=== PATIENT | male | born 1955 | race Caucasian/White ===

== ENCOUNTER → 2017-05-31 | Outpatient (CLI) | payer BC | END | disposition home or self-care (01) | LOC: LABWHC1 08:36 | PROVIDERS: ATTEND Psychiatry & Neurology Neurology | DX: M79.672 Pain in left foot (principal); Z79.899 Other long term (current) drug therapy | CPT/HCPCS: 36415; 83036 ==

== ENCOUNTER → 2018-02-27 | Outpatient (CLI) | payer BC ==
--- NOTE | 2018-02-27 10:50 | XR ---
EXAMINATION TYPE: XR Hip Complete RT DATE OF EXAM: 02/27/2018 COMPARISON: NONE HISTORY: Pain TECHNIQUE: 2 views submitted FINDINGS: There is no evidence of erosive change or acute fracture. Calcifications appear to be vascular. Mild concentric narrowing the joint space. No erosive changes. IMPRESSION: 1. Mild arthropathy.
== END | disposition home or self-care (01) ==
LOC: RADXRMAIN 09:52
PROVIDERS: ATTEND Psychiatry & Neurology Neurology
DX: M12.851 Other specific arthropathies, not elsewhere classified, right hip (principal); M25.551 Pain in right hip
CPT/HCPCS: 73502

== ENCOUNTER → 2018-05-13 | Outpatient (CLI) | payer BC | LOC: RADNMMAIN 09:00 | PROVIDERS: ATTEND Family Medicine | DX: Z53.9 Procedure and treatment not carried out, unspecified reason (principal) ==

== ENCOUNTER → 2018-06-02 | Outpatient (CLI) | payer BC ==
[~2018-06-02] MED LIST: REGADENOSON 0.4 MG/5 ML SYRINGE IV ONE
--- NOTE | 2018-06-02 11:29 | NM ---
EXAMINATION TYPE: NM stress lexiscan cardiolite DATE OF EXAM: 06/02/2018 COMPARISON: Prior chest x-ray dated 01/03/2016 HISTORY: Coronary artery disease and chest pain TECHNIQUE: After the intravenous administration of 10.37 mCi Tc 99m Sestamibi - Cardiolite resting S PECT images acquired 45 minutes post injection. The patient received 0.4mg Lexiscan, 25.2 mCi Tc 99m Sestamibi - Stress images obtained [address] injection FINDINGS: Review of stress and rest SPECT images demonstrates decreased reaffirms of uptake along the anterosep eric left ventricle on stress and rest images extending towards the apex. Some decreased uptake along the inferior wall is greater on rest images than on stress images. Gated analysis shows normal wall m otion with an estimated left ventricular ejection fraction of 56 %. IMPRESSION: No scintigraphic evidence for reversible ischemia. 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
--- NOTE | 2018-06-02 12:03 | ECHOF ---
Referral Reason:I25.10 CAD, R07.9 Chest pain MEASUREMENTS -------- HEIGHT: 157.5 cm WEIGHT: 106.6 kg BP: RVIDd: 3.4 cm (< 3.3) IVSd: 1.4 cm (0.6 - 1.1) LVIDd: 4.4 cm (3.9 - 5.3) LVPWd: 1.3 cm (0.6 - 1.1) IVSs: 1.8 cm LVIDs: 4.0 cm LVPWs: 1.3 cm LAESV Index (A-L): 26.04 ml/m Ao Diam: 4.0 cm (2.0 - 3.7) AV Cusp: 2.1 cm (1.5 - 2.6) LA Diam: 3.5 cm (2.7 - 3.8) MV EXCURSION: 17.701 mm (> 18.000) MV EF SLOPE: 69 mm/s (70 - 150) EPSS: 0.6 cm MV E Von: 0.43 m/s MV DecT: 289 ms MV A Von: 0.57 m/s MV E/A Ratio: 0.75 RAP: 5.00 mmHg RVSP: 10.41 mmHg FINDINGS -------- Sinus rhythm. This was a technically adequate study. The left ventricular size is normal. There is moderate concentric left ventricular hypertrophy. O verall left ventricular systolic function is mildly impaired with, an EF between 45 - 50 %. The right ventricle is normal in size. The left atrial size is normal. The right atrial size is normal. The aortic valve is trileaflet, and appears structurally normal. No aortic stenosis or regurgitation. Mild mitral regurgitation is present. Mild tricuspid regurgitation present. There is no evidence of pulmonary hypertension. The right v entricular systolic pressure, as measured by Doppler, is 10.41mmHg. There is no pulmonic regurgitation present. The aortic root size is normal. There is no pericardial effusion. CONCLUSIONS -------- 1. The left ventricular size is normal. 2. There is moderate concentric left ventricular hypertrophy. 3. Overall left ventricular systolic function is mildly impaired with, an EF between 45 - 50 %. 4. The right ventricle is normal in size. 5. The left atrial size is normal. 6. The right atrial size is normal. 7. The aortic valve is trileaflet, and appears structurally normal. No aortic stenosis or regurgitati on. 8. Mild mitral regurgitation is present. 9. Mild tricuspid regurgitation present. 10. There is no evidence of pulmonary hypertension. 11. The right ventricular systolic pressure, as measured by Doppler, is 10.41mmHg. 12. There is no pulmonic regurgitation present. 13. The aortic root size is normal. 14. There is no pericardial effusion. MEAL COOKER: Belle Carmona RDCS
--- NOTE | 2018-06-02 13:54 | EST ---
EXERCISE STRESS AGE: 63 SEX: M HT: 5'10" WT: 235 PROTOCOL: Lexiscan Cardiolite Stress Test HEART RATE REST: 61 BLOOD PRESSURE REST: 130/97 MAXIMUM HEART RATE ACHIEVED: 80 MAXIMUM BLOOD PRESSURE: 130/97 INDICATIONS: Coronary artery disease, chest pain. CLINICAL INFORMATION: STRESS DATA: Heart rate 61, pressure is 130/97 mmHg. Baseline EKG shows sinus mechanism with left bundle-branch block; 0.4 mg of Lexiscan was given over 15 seconds per protocol. Max heart rate was 80 beats per minute and maximum pressure was 130/97. Clinically, the patient has no symptoms and the EKG did not show any significant ST or T-wave abnormalities concerning for ischemia. CONCLUSION: 1. Nondiagnostic electrocardiogram stress testing response to Lexiscan. 2. Please follow up on the Cardiolite portion on a separate report from the Radiology Department. MMODL / IJN: [id number] /
== END | disposition home or self-care (01) ==
LOC: RADNMMAIN 07:56
PROVIDERS: ATTEND Family Medicine
DX: R07.9 Chest pain, unspecified (principal); I25.10 Atherosclerotic heart disease of native coronary artery without angina pectoris
CPT/HCPCS: 93017; 93306; 78452; A9500; J2785

== ENCOUNTER → 2020-05-19 | Outpatient (CLI) | payer MEDICARE ==
[2020-05-19 21:11] LABS: C Reactive Protein <0.4 mg/dL (0.0-0.8)
== END | disposition home or self-care (01) ==
LOC: LABWHC1 08:48
PROVIDERS: ATTEND Psychiatry & Neurology Neurology
DX: M10.9 Gout, unspecified (principal)
CPT/HCPCS: 36415; 84550; 85652; 86140

== ENCOUNTER → 2021-01-09 | Outpatient (CLI) | payer MEDICARE ==
[2021-01-09 18:39] LABS: HCT 40.8 % (39.6-50.0); HGB 13.6 g/dL (13.0-17.0); MCH 30.2 pg (27.0-32.0); MCHC 33.3 g/dL (32.0-37.0); MCV 90.5 fL (80.0-97.0); Mean Platelet Volume 10.8 fL (9.5-12.2); Platelet Count 223 X 10*3/uL (140-440); RBC 4.51 X 10*6/uL (4.40-5.60); RDW 14.2 % (11.5-14.5)
[2021-01-09 19:17] LABS: African American GFR (CKD) 65.9 (60.0-200.0); Albumin 4.5 g/dL (3.80-4.90); Albumin/Globulin Ratio 1.88 (1.60-3.17); Anion Gap 5.8 mmol/L (4.00-12.00); BUN/Creat Ratio 17.69 Ratio (12.00-20.00); Calcium 9.6 mg/dL (8.7-10.3); Carbon Dioxide 29.2 mmol/L (21.6-31.8); Globulin 2.4 g/dL (1.6-3.3); Non-African American GFR(CKD) 56.9 (60.0-200.0); Potassium 3.9 mmol/L (3.5-5.5); Total Bilirubin 0.9 mg/dL (0.3-1.2); Total Protein 6.9 g/dL (6.2-8.2)
[2021-01-09 19:27] LABS: Prostate Specific Antigen 1.8 ng/mL (0.0-4.5)
== END | disposition home or self-care (01) ==
LOC: LABWHC1 11:14
PROVIDERS: ATTEND Urology
DX: E29.1 Testicular hypofunction (principal)
CPT/HCPCS: 36415; 80053; 84153; 84402; 84403; 85027

== ENCOUNTER 2023-10-17 20:00 | Emergency (ER) | payer MEDICARE ==
--- NOTE | 2023-10-17 21:07 | ED ---
Lower Extremity Injury HPI - General Source: patient, RN notes reviewed Mode of arrival: wheelchair Limitations: no limitations <Elle Holland - Last Filed: 10/17/23 23:17> <Chi Hernandez - Last Filed: 10/18/23 01:30> - General Chief Complaint: Extremity Injury, Lower Stated Complaint: rt foot pain Time Seen by Provider: 10/17/23 20:15 - History of Present Illness Initial Comments: 68-year-old male presents emergency department chief complaint of right ankle and foot pain. He states that he stepped off of a curb on Saturday and hurt his ankle. He denies any numbness or tingling to any extremity has limited range of motion and states it is painful to bear weight on it. Patient states that he has a history of a stroke and his right side is his weaker side. States he is taken Motrin at home. (Elle Holland) - Related Data Home Medications Medication Instructions Recorded Confirmed Losartan/Hydrochlorothiazide 1 tab PO DAILY 01/03/16 01/03/16 [Hyzaar 100-25 Tablet] Previous Rx's Medication Instructions Recorded Aspirin EC [Ecotrin] 325 mg PO DAILY tablet. 01/06/16 Atorvastatin [Lipitor] 20 mg PO DAILY tab 01/06/16 amLODIPine [Norvasc] 5 mg PO HS tab 01/06/16 Allergies Allergy/AdvReac Type Severity Reaction Status Date / Time No Known Allergies Allergy Verified 10/17/23 20:13 Review of Systems ROS Other: All systems not noted in ROS Statement are negative. <Elle Holland - Last Filed: 10/17/23 23:17> ROS Other: All systems not noted in ROS Statement are negative. <Chi Hernandez - Last Filed: 10/18/23 01:30> ROS Statement: Those systems with pertinent positive or pertinent negative responses have been documented in the HPI. Past Medical History Past Medical History: Hyperlipidemia, Hypertension History of Any Multi-Drug Resistant Organisms: None Reported Past Surgical History: Hernia Repair, Joint Replacement Past Psychological History: No Psychological Hx Reported Smoking Status: Never smoker Past Alcohol Use History: Occasional Past Drug Use History: None Reported - Past Family History Mother Family Medical History: Diabetes Mellitus, Hypertension Father Family Medical History: Diabetes Mellitus, Hypertension Brother(s) Family Medical History: Diabetes Mellitus Son(s) Family Medical History: No Reported History <Elle Holland - Last Filed: 10/17/23 23:17> General Exam Limitations: no limitations <Elle Holland - Last Filed: 10/17/23 23:17> Course Vital Signs 10/17/23 20:08 Temperature 97.9 F Pulse Rate 92 Respiratory 18 Rate Blood Pressure 118/74 O2 Sat by Pulse 97 Oximetry Medical Decision Making <Elle Holland - Last Filed: 10/17/23 23:17> <Chi Hernandez - Last Filed: 10/18/23 01:30> - Medical Decision Making Was pt. sent in by a medical professional or institution (, PA, TERRESTRIAL ECOLOGIST, urgent care, hospital, or jail...) When possible be specific @ -[No] Did you speak to anyone other than the patient for history (EMS, parent, family, police, friend...)? What history was obtained from this source @ -[No] Did you review nursing and triage notes (agree or disagree)? Why? @ -[I reviewed and agree with nursing and triage notes] Were old charts reviewed (outside hosp., previous admission, EMS record, old EKG, old radiological studies, urgent care reports/EKG's, jail records)? Report findings @ -[No old charts were reviewed] Differential Diagnosis (chest pain, altered mental status, abdominal pain women, abdominal pain men, vaginal bleeding, weakness, fever, dyspnea, syncope, headache, dizziness, GI bleed, back pain, seizure, CVA, palpatations, mental health, musculoskeletal)? @ -Differential Musculoskeletal Muscular strain, contusion, ligament sprain, fracture, arthritis, septic arthritis, bursitis, cellulitis, muscle spasm, nerve compression, DVT, arterial occlusion, herpes zoster, electrolyte abnormality, tumor.... This is not meant to be in all inclusive list EKG interpreted by me (3pts min.). @ -[As above] X-rays interpreted by me (1pt min.). @ -[None done] CT interpreted by me (1pt min.). @ -[None done] U/S interpreted by me (1pt. min.). @ -[None done] What testing was considered but not performed or refused? (CT, X-rays, U/S, labs)? Why? @ -[None] What meds were considered but not given or refused? Why? @ -[None] Did you discuss the management of the patient with other professionals (prof arreola iDianae. , PA, TERRESTRIAL ECOLOGIST, lab, RT, psych nurse, aids social worker, full service supervisor, teacher, access control officer, director of casework services)? Give summary @ -[No] Was smoking cessation discussed for >3mins.? @ -[No] Was critical care preformed (if so, how long)? @ -[No] Were there social determinants of health that impacted care today? How? (Homelessness, low income, unemployed, alcoholism, drug addiction, transportation, low edu. Level, literacy, decrease access to med. care, halfway, rehab)? @ -[No] Was there de-escalation of care discussed even if they declined (Discuss DNR or withdrawal of care, Hospice)? DNR status @ -[No] What co-morbidities impacted this encounter? (DM, HTN, Smoking, COPD, CAD, Cancer, CVA, ARF, Chemo, Hep., AIDS, mental health diagnosis, sleep apnea, morbid obesity)? @ -[None] Was patient admitted / discharged? Hospital course, mention meds given and route, prescriptions, significant lab abnormalities, going to OR and other pertinent info. @ -[hospital course] Undiagnosed new problem with uncertain prognosis? @ -[No] Drug Therapy requiring intensive monitoring for toxicity (Heparin, Nitro, Insulin, Cardizem)? @ -[No] Were any procedures done? @ -[No] Diagnosis/symptom? @ -[default] Acute, or Chronic, or Acute on Chronic? @ -[default] Uncomplicated (without systemic symptoms) or Complicated (systemic symptoms)? @ -[default] Side effects of treatment? @ -[No] Exacerbation, Progression, or Severe Exacerbation? @ -[No] Poses a threat to life or bodily function? How? (Chest pain, [place], [place], pneumonia, PE, COPD, DKA, ARF, appy, cholecystitis, CVA, Diverticulitis, Homicidal, Suicidal, threat to staff... and all critical care pts) @ -[No] (Stiedsonr,Elle) 68-year-old male presenting to the ED with a chief complaint of right foot and ankle pain. Reports 6 days ago stepped off a curb and twisted his right ankle. Since then has been having some pain of his ankle and foot. Reports that he is still having pain and swelling to his foot prompting presentation to the ED for further evaluation. Case was signed out to me pending ultrasound. X-rays of the right foot and ankle reviewed which revealed no evidence of acute finding. Doppler ultrasound revealed no evidence of DVT. Ankle was wrapped for comfort. Patient reports that he has good supplies of pain medications at home. Discharged home in stable condition with instructions to follow-up with his PCP. Discussed return precautions with patient and who verbalized agreement. (Chi Hernandez) Disposition <Elle Holland - Last Filed: 10/17/23 23:17> Is patient prescribed a controlled substance at d/c from ED?: No Time of Disposition: 01:30 <Chi Hernandez - Last Filed: 10/18/23 01:30> Clinical Impression: Ankle sprain Disposition: HOME SELF-CARE Condition: Good Instructions (If sedation given, give patient instructions): Ankle Sprain (ED) Additional Instructions: Please return to the Emergency Department if symptoms worsen or any other conc erns. Please follow-up with your PCP. Referrals: Stu Almodovar DO [Primary Care Provider] - 1-2 days
--- NOTE | 2023-10-17 21:14 | XR ---
PROCEDURE: XR ankle limited RT - 2V DATE AND TIME: 10/17/2023 9:01 PM CLINICAL INDICATION: PHH; injury to R ankle TECHNIQUE: Department protocol COMPARISON: None FINDINGS / IMPRESSION: There is soft tissue swelling. No acute fracture/malalignment. Mortise is intact. No focal osseous lesions.
--- NOTE | 2023-10-17 21:58 | XR ---
PROCEDURE: XR foot limited RT - 2V DATE AND TIME: 10/17/2023 9:45 PM CLINICAL INDICATION: PHH; fall TECHNIQUE: AP and lateral COMPARISON: 03/17/2012 FINDINGS / IMPRESSION: No acute fracture/malalignment. No focal osseous lesions. Soft tissue swelling noted. Atherosclerotic arterial calcifications.
[2023-10-17] MEDS: ACETAMINOPHEN TAB 500 MG TAB PO STA (22:33)
--- NOTE | 2023-10-18 00:43 | US ---
EXAMINATION TYPE: US venous doppler duplex LE RT DATE OF EXAM: 10/17/2023 10:23 PM COMPARISON: NONE CLINICAL INDICATION: Male, 68 years old with history of LE swelling; Twisted ankle last week. Swellin g in rt ankle. No hx of DVT SIDE PERFORMED: Right TECHNIQUE: The lower extremity deep venous system is examined utilizing real time linear array sonog lilian with graded compression, doppler sonography and color-flow sonography. VESSELS IMAGED: Common Femoral Vein Deep Femoral Vein Greater Saphenous Vein * Femoral Vein Popliteal Vein Small Saphenous Vein * Proximal Calf Veins (* superficial vessels) Right Leg: No evidence for DVT Grayscale, color doppler, spectral doppler imaging performed of the deep veins of the right lower ext remity. There is normal flow, compressibility, vascular waveforms. IMPRESSION: No ultrasound evidence for acute DVT in the right lower extremity.
[2023-10-18 02:20] VITALS: BP 121/76; PULSE 84; RESP 17; TEMP 98.1
== END 2023-10-18 01:49 | disposition home or self-care (01) ==
LOC: EC 20:00
DX: S93.401A Sprain of unspecified ligament of right ankle, initial encounter (principal); W22.8XXA Striking against or struck by other objects, initial encounter
CPT/HCPCS: 99284

== ENCOUNTER → 2024-08-17 | Outpatient (CLI) | payer MEDICARE ==
--- NOTE | 2024-08-17 14:28 | US ---
EXAMINATION TYPE: US arterial LE single level DATE OF EXAM: 08/17/2024 2:18 PM COMPARISONS: US 2013 CLINICAL INDICATION: Male, 69 years old with history of M79.662 PAIN LEG LEFT LEG M79.661 PAIN RIGHT LEG; TECHNIQUE: Systolic pressures were taken of the upper and lower extremity arteries with ankle-brachia l indices and toe brachial indices calculated bilaterally. History of: Smoker: Never Hypertension: Yes Diabetic: Yes Hyperlipidemia: No TIA/CVA: Yes - 2015 Previous Vascular Surgery: No NH: No Vascular Ulcers: No Claudication: No Gangrene: No FINDINGS: Doppler Waveforms: Right: Biphasic waveforms within the right femoral, popliteal, dorsalis pedis arteries. Monophasic wa veforms within the right posterior tibial artery. Left: Triphasic waveforms within the left femoral and dorsalis pedis arteries. Biphasic waveforms wit hin the left popliteal artery. Monophasic waveforms within the left posterior tibial artery. Brachial Artery systolic pressure: Right: 155 Left: 144 Posterior Tibial artery systolic pressure: Right: 128 Left: 125 Dorsalis Pedis artery systolic pressure: Right: 160 Left: 167 Ankle-Brachial Indices: Right: 1.03 Left: 1.08 IMPRESSION: TACHO: Right: Normal 0.9 - 1.4, Recommendation: None Left: Normal 0.9 - 1.4, Recommendation: None [facility], , 08/17/2024 2:26 PM
== END | disposition home or self-care (01) ==
LOC: RADUSWWP 13:44
PROVIDERS: ATTEND Family Medicine
DX: M79.662 Pain in left lower leg (principal); M79.661 Pain in right lower leg; I10 Essential (primary) hypertension
CPT/HCPCS: 93922